=== PATIENT | male | born 1960 | race Caucasian/White ===

== ENCOUNTER → 2017-01-01 | Outpatient (CLI) | payer SELFPAY ==
[~2017-01-01] MED LIST: ADVIL200 MG PO; COLACE100 MG PO; DILAUDID 2MG(HYD2 MG PO; FLONASE 50 MCG/16 GM NOSE; MEN'S MULTI-VI1 EACH PO; NORVASC5 MG PO; TYLENOL EXTRA500 MG PO; TYLENOL PM EX-1 EACH PO; VALIUM5 MG PO; VYTORIN 10-801 EACH PO; XARELTO10 MG PO; ZYRTEC10 M1 PO; ZYRTEC10 MG PO
== END | disposition disaster alternative care site (69) ==
LOC: GRAD 08:42
DX: E78.5 Hyperlipidemia, unspecified (principal); Z84.89 Family history of other specified conditions

== ENCOUNTER → 2017-05-14 | Outpatient (CLI) | payer BC ==
[2017-05-14 17:11] LABS: ALBUMIN 3.9 gm/dL (3.5-5.0); ANION GAP 12.9 (10.0-19.0); CALCIUM 8.9 mg/dL (8.5-10.5); CREATININE 1.1 mg/dL (0.6-1.3); POTASSIUM 3.9 mMol/L (3.7-5.1); TOTAL BILIRUBIN 0.9 mg/dL (0.0-1.5); TOTAL PROTEIN 7.1 g/dL (6.0-8.4)
== END ==
LOC: LNHI 16:47
PROVIDERS: Internal Medicine Interventional Cardiology
DX: E78.5 Hyperlipidemia, unspecified (principal); I10 Essential (primary) hypertension